=== PATIENT | male | born 1950 | race Caucasian/White ===

== ENCOUNTER → 2018-09-14 11:11 | Outpatient (CLI) | payer MEDICARE, SELFPAY ==
--- NOTE | 2018-09-14 11:22 | XR_ITS ---
XR foot RT min 3V HISTORY: Right foot pain ITS.REASON: RT FOOT INJURY, ORDERING PHYSICIAN: Ritesh Guan MD PATIENT AGE: 67 years COMPARISON: None FINDINGS: No fracture or dislocation. No lytic or blastic change. There is normal mineralization.. The joint spaces are well-preserved. No significant degenerative/arthritic changes. No erosive changes evident. There is an apparent accessory bone adjacent to the lateral border of the calcaneus anteriorly. Another possibility would be an old unfused chip fracture as it has somewhat of a sclerotic appearance.. There is a prominent spur of the calcaneus at insertion of Achilles tendon. There is a tiny accessory navicular bone. IMPRESSION: Negative for acute fracture
== END ==
PROVIDERS: PCP Family Medicine; Visit Provider Family Medicine
DX: M79.671 Pain in right foot (principal)
CPT/HCPCS: 73630

== ENCOUNTER → 2019-02-13 14:08 | Outpatient (POV) | payer MEDICARE, SELFPAY | DX: Z00.00 Encounter for general adult medical examination without abnormal findings (principal) ==

== ENCOUNTER → 2019-03-13 14:01 | Outpatient (POV) | payer MEDICARE, SELFPAY | DX: Z00.00 Encounter for general adult medical examination without abnormal findings (principal) ==

== ENCOUNTER → 2019-07-10 12:52 | Outpatient (POV) | payer MEDICARE, SELFPAY | DX: Z00.00 Encounter for general adult medical examination without abnormal findings (principal) ==

== ENCOUNTER → 2019-09-24 15:27 | Outpatient (CLI) | payer MEDICARE, SELFPAY ==
--- NOTE | 2019-09-24 15:37 | XR_ITS ---
PROCEDURE: XR ELBOW RT MIN 3V CLINICAL INDICATION: FALL,RT ELBOW INJURY Right elbow pain following injury COMPARISON: No exams were available for comparison FINDINGS: Mildly depressed fracture involves the radial head and neck along the lateral aspect. There are mild degenerative changes at the coracoid process Other findings:None. IMPRESSION: Mildly depressed radial head fracture Dictated by: Yan Vaughan MD 09/24/2019 15:53 Electronically signed by Yan Vaughan MD in [facility] 09/24/2019 15:53
== END ==
PROVIDERS: PCP Family Medicine; Visit Provider Family Medicine
DX: S52.121A Displaced fracture of head of right radius, initial encounter for closed fracture (principal)
CPT/HCPCS: 73080

== ENCOUNTER → 2019-09-27 09:54 | Outpatient (CLI) | payer MEDICARE, SELFPAY ==
--- NOTE | 2019-09-27 09:56 | CT_ITS ---
PROCEDURE: CT ELBOW RT WO CON CLINICAL HISTORY: rt elbow fracture COMPARISON: XR ELBOW RT MIN 3V from 09/24/2019 TECHNIQUE: Axial images obtained with sagittal and coronal reformats. All CT scans at the facility use one or more dose reduction, viz: automated exposure control, ma/kV adjustment per patient size (including targeted exams where dose is matched to indication, i.e. head), or iterative reconstruction technique. FINDINGS: There are fractures through the medial and lateral aspects of the radial head with mild central depression of the articular cortex of the radial head. The supracondylar humerus appears intact. There is minor spurring of the coronoid process of the left lung fossa. IMPRESSION: Complex fracture with central depression radial head as described Dictated by: Dr. Vishal Grullon MD 09/27/2019 11:[address] Vishal Grullon MD in [facility] 09/27/2019 11:05
== END ==
PROVIDERS: PCP Family Medicine; Visit Provider Orthopaedic Surgery
DX: S52.121A Displaced fracture of head of right radius, initial encounter for closed fracture (principal)
CPT/HCPCS: 73200

== ENCOUNTER → 2019-10-07 10:17 | Outpatient (CLI) | payer MEDICARE, SELFPAY ==
--- NOTE | 2019-10-07 10:21 | XR_ITS ---
PROCEDURE: XR ELBOW RT MIN 3V CLINICAL INDICATION: right radial head fracture fu Follow-up fracture COMPARISON: XR ELBOW RT MIN 3V from 09/24/2019 FINDINGS: Study is obtained through a splint posteriorly. Minimally depressed radial head fracture once again noted slightly comminuted not significantly changed. Fracture line is still visible Other findings:None. IMPRESSION: No change radial head fracture Dictated by: Yan Vaughan MD 10/07/2019 10:39 Electronically signed by Yan Vaughan MD in [facility] 10/07/2019 10:39
== END ==
PROVIDERS: PCP Family Medicine; Visit Provider Orthopaedic Surgery
DX: S52.123A Displaced fracture of head of unspecified radius, initial encounter for closed fracture (principal)
CPT/HCPCS: 73080

== ENCOUNTER → 2019-11-04 10:43 | Outpatient (CLI) | payer MEDICARE, SELFPAY ==
--- NOTE | 2019-11-04 10:55 | XR_ITS ---
PROCEDURE: XR ELBOW RT MIN 3V CLINICAL INDICATION: radial head fracture fu COMPARISON: XR ELBOW RT MIN 3V from 09/24/2019 XR ELBOW RT MIN 3V from 10/07/2019 FINDINGS: Healing fractures present involving the radial head with good alignment. Minimal spurring noted at the coronoid process medially and at the medial epicondyle. There is an old avulsion injury at the lateral epicondyle. Other findings:None. IMPRESSION: Healing radial head fracture with good alignment Dictated by: Yan Vaughan MD 11/04/2019 16:25 Electronically signed by Yan Vaughan MD in [facility] 11/04/2019 16:25
== END ==
PROVIDERS: PCP Family Medicine; Visit Provider Orthopaedic Surgery
DX: S52.121A Displaced fracture of head of right radius, initial encounter for closed fracture (principal)
CPT/HCPCS: 73080

== ENCOUNTER → 2020-03-04 13:26 | Outpatient (POV) | payer MEDICARE, SELFPAY | PROVIDERS: PCP Family Medicine | DX: Z00.00 Encounter for general adult medical examination without abnormal findings (principal) ==

== ENCOUNTER → 2021-01-13 13:42 | Outpatient (POV) | payer MEDICARE, SELFPAY | DX: Z00.00 Encounter for general adult medical examination without abnormal findings (principal) ==

== ENCOUNTER → 2021-01-20 13:01 | Outpatient (POV) | payer MEDICARE, SELFPAY | DX: Z00.00 Encounter for general adult medical examination without abnormal findings (principal) ==

== ENCOUNTER → 2021-01-20 13:28 | Outpatient (CLI) | payer MEDICARE, SELFPAY | PROVIDERS: PCP Family Medicine | DX: Z01.818 Encounter for other preprocedural examination (principal); Z20.822 Contact with and (suspected) exposure to COVID-19; H25.11 Age-related nuclear cataract, right eye | CPT/HCPCS: U0003 ==

== ENCOUNTER → 2021-02-03 07:07 | Outpatient (CLI) | payer MEDICARE, SELFPAY ==
[2021-02-03 07:59] LABS: Hemoglobin A1C 5.4 % (4.0-6.0)
[2021-02-03 08:43] LABS: Chloride 104 mmol/L (98-107)
[2021-02-03 08:44] LABS: Potassium 4.6 mmoL/L (3.5-5.1); Sodium 140 mmol/L (136-145)
[2021-02-03 08:46] LABS: Alanine Aminotransferase 41 U/L (12-78); Albumin Level 4.9 g/dl (3.5-5.0); Albumin/Globulin Ratio 2.1 (1.1-1.8); Alkaline Phosphatase 66 U/L (38-126); Anion Gap 13.6 mEq/L (5-15); Aspartate Amino Transferase 33 U/L (17-59); Bilirubin,Total 0.9 mg/dl (0.2-1.3); Blood Urea Nitrogen 20 mg/dl (9-20); Carbon Dioxide 27 mmol/L (22.0-30.0); Cholesterol 186 mg/dl (140-200); Estimated Glomerular Filt Rate 96 ml/min (>60); GFR (African American) 116 ML/MIN (>60); Globulin 2.3 g/dL (1.3-3.2); Total Protein,Serum 7.2 g/dl (6.3-8.2); Triglycerides 128 mg/dl (30-150); VLDL Cholesterol 26 mg/dL (0-40)
[2021-02-03 08:47] LABS: Calcium 9.6 mg/dl (8.4-10.2); Chol/HDL Ratio 5.3 (1-3.5); Glucose 104 mg/dl (74-100); HDL Cholesterol 35 mg/dl (40-60)
[2021-02-03 08:58] LABS: Direct LDL Cholesterol 126.93 mg/dL (100-129)
[2021-02-03 09:17] LABS: Thyroid Stimulating Hormone 2.07 uIU/mL (0.465-4.68)
== END ==
PROVIDERS: Visit Provider Family Medicine
DX: I10 Essential (primary) hypertension (principal); Z12.5 Encounter for screening for malignant neoplasm of prostate; Z79.899 Other long term (current) drug therapy
CPT/HCPCS: 36415; 80053; 80061; 83036; 84443; G0103

== ENCOUNTER → 2021-02-10 15:06 | Outpatient (POV) | payer MEDICARE, SELFPAY | DX: Z00.00 Encounter for general adult medical examination without abnormal findings (principal) ==

== ENCOUNTER → 2021-03-17 13:33 | Outpatient (POV) | payer MEDICARE, SELFPAY | DX: Z00.00 Encounter for general adult medical examination without abnormal findings (principal) ==

== ENCOUNTER → 2021-08-30 08:45 | Outpatient (CLI) | payer MEDICARE, SELFPAY | PROVIDERS: PCP Family Medicine; Visit Provider Nurse Practitioner | DX: Z20.822 Contact with and (suspected) exposure to COVID-19 (principal) | CPT/HCPCS: C9803; U0003; U0005 ==

== ENCOUNTER → 2021-11-15 08:12 | Outpatient (CLI) | payer MEDICARE, SELFPAY | PROVIDERS: Visit Provider Nurse Practitioner | DX: U07.1 COVID-19 (principal) | CPT/HCPCS: C9803; U0003; U0005 ==

== ENCOUNTER → 2021-11-22 17:38 | Outpatient (CLI) | payer MEDICARE, SELFPAY | PROVIDERS: Visit Provider Nurse Practitioner | DX: U07.1 COVID-19 (principal) | CPT/HCPCS: C9803; U0003; U0005 ==

== ENCOUNTER 2024-03-19 09:00 | Outpatient (RCR) | payer MEDICARE, SELFPAY | END 2024-03-19 10:20 | disposition home or self-care (01) | LOC: PT 09:00 | PROVIDERS: Visit Provider Orthopaedic Surgery | DX: M25.561 Pain in right knee (principal) | CPT/HCPCS: 97110; 97140; 97163; 97164; 97530 ==